=== PATIENT | female | born 1995 ===

== ENCOUNTER 2024-04-16 16:28 | Outpatient (REF) | payer MEDICAID, SELFPAY ==
--- OUTSIDE RECORDS SUMMARY | 2024-04-16 16:48 | XMS_ITS | Clinical Summary ---
Author Organization [facility] Address [address] [place] [address] Phone Care Team Providers Care Premium Note Interest Calculator Clerk Name Role Phone Crystal Eisenberg LACE PINNER Primary Care Provider [phone] Allergies No known active allergies Medications sertraline 25 MG tabletIndicatio ns:Anxiety TAKE 1 TABLET(25 MG) BY MOUTH DAILY 30 tablet 3 Active Additional Information Patient not taking.Reported on 12/06/2020 Active Problems Problem Noted Date Diagnosed Date Right sided sciatica 10/11/2020 Assessment & Plan (10/11/2020 9:31 PM EDT): History and exam consistent with sciatica. Will treat lower back muscle tenderness and tension with a muscle relaxant. Reviewed warnings for use of muscle relaxants. Referring to ortho for further evaluation of back pain and sciatica. Generalized anxiety disorder 06/12/2016 Overview (06/01/2020): Anxiety (300.02) Onset: 06/12/2016 Added by: Stephanie Gil Assessment & Plan (06/11/2020 11:36 PM EDT): Much improved symptoms since starting Zoloft. Will keep at current dose of 25 mg and will follow up if anxiety begins to increase again. Other atopic dermatitis and related conditions 0 12/18/2012 Overview (06/01/2020): Eczema (691.8) Onset: 12/18/2012 Added by: Suzanna Ross Comments Yes Resolved Problems Problem Noted Date Diagnosed Date Resolved Date Gynecomastia 10/11/2020 12/07/2020 Assessment & Plan (10/11/2020 9:33 PM EDT): Patient complains about weight of breasts and stress on her back from this weight. No nipple discharge, headaches or other significant symptoms to suggest an underlying medical condition causing gynecomastia. Will obtain lab work to check for any issues. Patient is interested in breast reduction surgery but only after having kids. Other specified indications for care or intervention related to labor and delivery, antepartum 06/18/2017 06/11/2020 Overview (06/01/2020): Uncomplicated (659.83) Onset: 06/18/2017 Added by: Stephanie Gil Personal history of exposure to potentially hazardous body fluids, presenting hazards to health 05/23/2016 06/11/2020 Overview (06/01/2020): Exposure to STD's by high risk sexual behavior (V15.85) Onset: 05/23/2016 Added by: Alyssa Tavarez Immunizations Name Administration Dates Next Due COVID-19 Pfizer, monovalent, 12+ years 1,05/03/2020 DTaP 08/07/2001, 8,01/22/1997,11/22,1996 HPV, Quadrivalent 03/14/2009,11/09/2008,09/10/19 09 Hep A, ped/adol 12/31/2013,12/19/2011 Hep B, ped/adol 04/12/1997,1996,1996 Hib (PRP-T) 11/14/1997, 7,1996,09/21 IPV 08/07/2001, 8,01/22/1997,11/22,1996 Influenza, injectable, quadr ivalent, preservative free 01/17/2015 Influenza, injectable, trivalent 12/31/2013,11/23 Influenza, injectable, triva lent, preservative free 12/18/2012 MMR 08/07/2001,11/14/1997 Meningococcal Conj (Menactra) MCV4P 12/31/2013,0 09/09/2008 Tdap 05/07/2017,09/09/2008 Varicella 09/09/2008,08/23/1997 Social History Tobacco Use Types Packs/Day Years Used Date Smoking Tobacco: Never Comments:Never Smoker Comments Yes Sex and Gender Information Value Date Recorded Sex Assigned at Not on file Legal Sex Female 6:19 PM EDT Gender Identity Not on file Sexual Orientation Not on file Last Filed Vital Signs Vital Sign Reading Time Taken Comments Blood Pressure 114/66 12/06/2020 2:09 PM EDT Pulse 95 12/06/2020 2:09 PM EDT Temperature 36.8 ??C (98.3 ??F) 12/06/2020 2:09 PM ED T Respiratory Rate - - Oxygen Saturation - - Inhaled Oxygen Concentration - - Weight 86.5 kg (190 lb 12.8 oz) 12/06/2020 2:09 PM EDT Height 168.2 cm (5' 6.22 ) 12/06/2020 2:09 PM ED T Body Mass Index 30.59 12/06/2020 2:09 PM EDT Plan of Treatment Health Maintenance Due Date Last Done Comments Hepatitis B Vaccines (3 of 3 - 3-dose series) 06/07/1997 04/12/1997, 1996, 1996 Influenza Vaccines (#1) 2023 01/18/20 15, 12/31/2013, 12/18/2012, Additional history exists COVID-19 Vaccine (3 - season) 2023 05/29/2020, 05/03/2020 DTaP,Tdap,and Td Vaccines (8 - Td or Tdap) 05/07/2027 05/07/2017, 09/09/2008, 08/07/2001, Additional history exists HIB Vaccines Completed 11/14/1997, 03/1996, 1996, Additional history exists IPV Vaccines Completed 08/07/2001, 03/1997, 01/22/1997, Additional history exists MMR Vaccines Completed 08/07/2001, 11/14/1997 Varicella Vaccines Completed 09/09/2008, 08/23/1997 HPV Vaccines Completed 03/14/2009, 10/22, 09/09/2008 Hepatitis A Vaccines Completed 12/31/2013, 12/19/19 12 Meningococcal Vaccine Completed 12/31/2013, 009 Men B Vaccine Aged Out No longer elig ible based on patient's age to complete this topic Pneumococcal Vaccine Aged Out No long er eligible based on patient's age to complete this topic Procedures * Due to [facility] law, this organization might not be sharing sensitive test results. Procedure Name Priority Date/Time Associated Diagnosis Comments CHLAMYDIA GC AMP PROBE Routine 06/07/2020 9:48 AM EDT Well adult exam from Last 3 Months or Most Recently Relevant to Health Maintenance Results * Due to [facility] law, this organization might not be sharing sensitive test results. * CHLAMYDIA GC AMP PROBE (06/07/2020 9:48 AM EDT) Chlamydia Trachomatis, Amplified NEGATIVE (NEG) [facility] Comment: No Chlamydia Trachomatis RNA detected in this patient's sample ? (REFERENCE RANGE/NORMAL VALUE: NOT DETECTED) ? Note: This test uses balance truer- mediated amplification method to detect rRNA from C. Trachomatis N.GONORRHOEAE AMP PROBE NEGATIVE (NEG) [facility] Comment: No Neisseria Gonorrhoeae RNA detected in this patient's sample ? (REFERENCE RANGE/NORMAL VALUE: NOT DETECTED) ? NOTE: This test uses balance truer-mediated amplification method to detect rRNA from N.Gonorrhoeae. A negative result does not preclude infection. In the case of a negative urine result, testing of an endocervical(female) or urethral (male) specimen is recommended if there is high clinical suspicion of infection. Due to very high sensitivity of Nucleic Acid Amplification Test, false positive results may occur. Therefore, specimen handling is extremely important. In patients in whom the disease is unlikely, additional sample for testing should be considered after an initial positive result. The performance characteristics of this test have not been evaluated in children. The Aptima Combo2 assay is not intended for the evaluation of suspected sexual abuse or for other medico-legal indications. The ordering provider should assess if the patient had consensual sex without risk of sexual abuse. Consult the [facility] if needed. Contact phone number . Therapeutic failure or success cannot be determined with the Aptima Combo2 assay since nucleic acid may persist following appropriate antimicrobial therapy. The Centers for Disease Control and Prevention (CDC) recommends confirmatory retesting using culture or a different nucleic acid amplification test when positive results occur, if indicated. CHLAM/GC AMP PROBE SPEC TYPE CERVIX [facility] Comment: Testing performed or reported by [facility], a Service of [facility], [facility] [place] [address] Rich Hadley MD, Plodder Operator Swab (Vagina) 06/07/2020 9:4 8 AM EDT 06/07/2020 6:12 PM EDT us Stephanie Gil DO LAB MICROBIOLOGY - GENERAL ORDE YOANNA Final Result [facility] from Last 3 Months or Most Recently Relevant to Health Maintenance Insurance [facility] [place] [id number] Care Teams Premium Note Interest Calculator Clerk Relationship Specialty Start Date End Date Crystal Eisenberg NP [address] [place] [address] PCP - General Pediatrics 07/10/20
--- OUTSIDE RECORDS SUMMARY | 2024-04-16 16:48 | XMS_ITS | Clinical Summary ---
Author Organization [employer] Address [address] [place] [address] Care Team Providers Care Preschool Assistant Principal Name Role Phone Nya Brandt MD Primary Care Provider [phone] Allergies No known active allergies Medications * This document contains information received from the source organization and may not represent a complete record from that organization. oseltamivir (Tamiflu) 75 MG capsule Take 1 capsule (75 mg) by mouth 2 times daily for 5 days. 10 capsule 04/16/2024 5 Active Active Problems Problem Noted Date Diagnosed Date Behavior concern in adult 12/29/2023 Assessment & Plan (12/29/2023 9:44 AM EDT): Patient will want to be assess for adult ADHD, contacted and requested to help with location where she can be best served. Blurry vision, bilateral 12/26/2023 Right sided sciatica 10/11/2020 Overview (12/26/2023): Last Assessment & Plan: History and exam consistent with sciatica. Will treat lower back muscle tenderness and tension with a muscle relaxant. Reviewed warnings for use of muscle relaxants. Referring to ortho for further evaluation of back pain and sciatica. Generalized anxiety disorder 06/12/2016 Overview (12/26/2023): Anxiety (300.02) Onset: 06/12/2016 Added by: Stephanie Gil Last Assessment & Plan: Much improved symptoms since starting Zoloft. Will keep at current dose of 25 mg and will follow up if anxiety begins to increase again. Encounters Date Type Department Care Team Description 04/16/2024 3:30 PM EST Office Visit [facility] CHC MED & PEDS [address] [place] [address] Lorena Higgins FNP Cough in adult 04/16/2024 Travel 04/16/2024 Telephone [facility] MEDICINE [address] [place] [address] Gisel Zheng, RN Nurse Triage from Last 3 Months Immunizations Name Administration Dates Next Due DTaP 08/07/2001, 8,01/22/1997,11/22,1996 HPV, Quadrivalent 03/14/2009,11/09/2008,09/10/19 09 Hep A, ped/adol, 2 dose 12/31/2013,12/19/2011 Hep B, Adolescent or Pediatric 04/12/1997,1996,1996 Hib (PRP-T) 11/14/1997, 7,1996,09/21 IPV 08/07/2001, 8,01/22/1997,11/22,1996 Influenza Injectable Quadriv alant Preservative Free IIV4 MDCK 03/23/2021 Influenza injectable quadriv alent preservative free 01/17/2015 Influenza, IIV3, injectable 12/31/2013, 2 Influenza, seasonal, injecta ble, preservative free 12/18/2012 MMR 08/07/2001,11/14/1997 Meningococcal MCV4P [id number] 12/31/2013,09/10/19 09 Tdap 04/30/2021,05/07/2017,09/09/2008 Varicella 09/09/2008,08/23/1997 Family History Medical History Relation Name Comments ADD / ADHD Brother ADD / ADHD Daughter Anxiety disorder Father Asthma Father Hyperlipidemia Father Hypertension Father Sleep apnea Father Cholelithiasis Mother Depression Mother Relation Name Status Comments Brother Daughter Father Mother Social History Tobacco Use Types Packs/Day Years Used Date Smoking Tobacco: Never Passive Smoke Exposure: Never Smokeless Tobacco: Never Tobacco Cessation:Counseling Given: Not Answered Alcohol Use Standard Drinks/Week Comments Never 0 (1 standard drink = 0.6 oz pur e alcohol) Depression Answer Date Recorded Patient Health Questionnaire-9 Score 11 12/26/2023 Patient Health Questionnaire-9 Score 11 12/26/2023 Last PHQ-9: Questionnaire Data Not on file 1 Housing Stability Answer Date Recorded What is your housing situation today? I have livier hendrix 12/18/[address] you li ve. Do you have problems with any of the following? None of the above 12/18/2023 Food Insecurity Answer Date Recorded Within the past 12 months, y ou worried that your food would run out before you got money to buy more: Never True 12/18/2023 Within the past 12 months,th e food you bought just didn't last and you didn't have enough money to get more: Never True Transportation Answer Date Recorded In the past 12 months, has l ack of transportation kept you from medical appts, meetings, work or from getting things needed for daily living? No 12/18/2023 Utilities Answer Date Recorded In the past 12 months, has t he electric, gas, oil or water company threatened to shut off services in your home? No 12/18/2023 Depression Answer Date Recorded Patient Health Questionnaire-2 Score 1 12/26/2023 Internet Access Answer Date Recorded Internet Access Q1 Yes 12/18/2023 Internet Access Q2 Not on file 12/18/2023 Comments Unknown Sex and Gender Information Value Date Recorded Sex Assigned at Female 06/25/2023 9:46 AM EDT Legal Sex Female 8:21 AM EDT Gender Identity Female 06/25/2023 9:46 AM EDT Sexual Orientation Straight 06/25/2023 9: 46 AM EDT Last Filed Vital Signs Vital Sign Reading Time Taken Comments Blood Pressure 115/67 04/16/2024 3:57 PM EST Pulse 110 04/16/2024 3:57 PM EST Temperature 38.1 ??C (100.5 ??F) 04/16/2024 3:[address] Respiratory Rate 16 04/16/2024 3:57 PM EST Oxygen Saturation 98% 04/16/2024 3:57 PM EST Inhaled Oxygen Concentration - - Weight 79.9 kg (176 lb 4 oz) 04/16/2024 3:57 PM EST Height 162.6 cm (5' 4 ) 04/16/2024 3:57 PM EST Body Mass Index 30.25 04/16/2024 3:57 PM EST Plan of Treatment Upcoming Encounters Date Type Department Care Team ([facility] st Contact Info) Description 04/28/2024 3:30 PM EST Office Visit [facility] OPTOMETRY [address] [place] [address] Jemma Zuniga, OD [address] [place] [address] Health Maintenance Due Date Last Done Comments HIV Screening 1996 Hepatitis B Vaccines (3 of 3 - 3-dose series) 06/07/1997 04/12/1997, 1996, 1996 Alcohol/Substance Use Screening 2008 Family Planning (PISQ) 08/05/2011 Hepatitis C Screening 2014 Pap Smear 2017 COVID-19 Vaccine ( season) 2023 03/23/2021, 05/29/2020, 05/03/2020 Influenza Vaccine (#1) 2023 , 01/17/2015, 12/31/2013, Additional history exists Depression Monitoring (PHQ-9) 06/25/2024 12/26/2023, 12/26/2023 SDOH Screening 12/17/2024 12/18/2023 Depression Screening 12/25/2024 12/26/2023, 12/26/19 Tobacco Screening 04/16/2025 04/16/2024 DTaP/Tdap/Td Vaccines (9 - Td or Tdap) 04/30/2031 04/30/2021, 05/07/2017, 09/09/2008, Additional history exists Zoster Vaccines (1 of 2) 2046 RSV Patients and Patients Aged 60 years or older (1 - 1-dose 75+ series) 08/05/2071 HIB Vaccines Completed 11/14/1997, 03/1996, 1996, Additional history exists IPV Vaccines Completed 08/07/2001, 03/1997, 01/22/1997, Additional history exists HPV Vaccines Completed 03/14/2009, 10/22, 09/09/2008 Hepatitis A Vaccines Completed 12/31/2013, 12/19/19 12 Meningococcal Vaccine Completed 12/31/2013, 009 Pneumococcal Vaccine: Pediatrics (0 to 5 Years) and At-Risk Patients (6 to 64 Years) Aged Out No longer eligible based on patient's age to complete this topic RSV under 20 months Aged Out No longe r eligible based on patient's age to complete this topic Rotavirus Vaccines Aged Out No longer eligible based on patient's age to complete this topic Procedures Procedure Name Priority Date/Time Associated Diagnosis Comments POCT INFLUENZA B Routine 04/16/2024 4:28 PM EST Cough in adult POCT RAPID STREP A Routine 04/16/2024 4: 26 PM EST Cough in adult POCT RAPID COVID ANTIGEN Routine 04/16/2024 4:25 PM EST Cough in adult POCT INFLUENZA A Routine 04/16/2024 4:21 PM EST Cough in adult from Last 3 Months Results * POCT Rapid Influenza B OSOM (04/16/2024 4:28 PM EST) [facility] Rapid Influenza B Ag Negative Negative, Indeterminate Comment:internal control pas sed QC Media Lot # [id number] Lot# Expiration Date [id number] Swab 04/16/2024 4:28 PM EST us Lorena Higgins INSTRUMENT TECHNICIAN APPRENTICE POINT OF CARE TEST ENTER/EDIT ORDERABLES Final Result * POCT Rapid Strep A OSOM (04/16/2024 4:26 PM EST) [facility] Rapid Strep A Screen Negative Negative, None Detected Comment:internal control pas sed QC Media Lot # [id number] Lot# Expiration Date [id number] Swab 04/16/2024 4:26 PM EST us Lorena Phalen [facility] POINT OF CARE TEST ENTER/EDIT ORDERABLES Final Result * POCT Rapid Covid-19 BinaxNOW (04/16/2024 4:25 PM EST) Rapid COVID Ag Negative QC Media Lot # [id number] Lot# Expiration Date [id number] Swab 04/16/2024 4:25 PM EST Lorena Higgins [facility] POINT OF CARE TEST ENTER/EDIT ORDERABLES Final Result * (ABNORMAL) POCT Rapid Influenza A OSOM (04/16/2024 4:21 PM EST) [facility] Rapid Influenza A Ag Positive( A) Negative, Indeterminate Comment:internal control pas sed QC Media Lot # [id number] Lot# Expiration Date [id number] Swab Nasopharyngeal structure / Unknown 04/16/2024 4:21 PM EST Lorena Higgins [facility] POINT OF CARE TEST ENTER/EDIT ORDERABLES Edited Result - Final from Last 3 Months Insurance [facility] C3 Care Teams Preschool Assistant Principal Relationship Specialty Start Date End Date Nya Brandt MD [address] [place] [address] PCP - General Family Medicine 12/26/23
--- OUTSIDE RECORDS SUMMARY | 2024-04-16 16:48 | XMS_ITS | Encounter Summary ---
Author Organization [employer] Address [address] [place] [address] Care Team Providers Care Cnc Router Operator Name Role Phone Nya Brandt MD Primary Care Provider Encounter Details Date Type Department Care Team (Latest Contact Info) Description 04/16/2024 Travel Social History Tobacco Use Types Packs/Day Years Used Date Smoking Tobacco: Never Passive Smoke Exposure: Never Smokeless Tobacco: Never Alcohol Use Standard Drinks/Week Comments Never 0 [...] Orientation Straight 06/25/2023 9: 46 AM EDT documented as of this encounter Plan of Treatment Upcoming Encounters Date Type Department Care Team (Late st Contact Info) Description 04/28/2024 3:30 PM EST Office Visit [facility] OPTOMETRY [address] [place] [address] Jemma Zuniga, OD [address] [place] [address] documented as of this encounter Visit Diagnoses Not on filedocumented in this encounter Additional Health Concerns Assessment Noted Time PHQ-9 Depression Total Score: 11 024 4:35 PM EDT documented as of this encounter Care Teams Cnc Router Operator Relationship Specialty Start Date End Date Nya Brandt MD [address] [place] [address] PCP - General Family Medicine 12/26/23 documented as of this encounter
--- OUTSIDE RECORDS SUMMARY | 2024-04-16 16:48 | XMS_ITS | Encounter Summary ---
Author Organization [facility] Address [address] [place] [id number] Phone Care Team Providers Care Drill Bit Sharpener Name Role Phone Crystal Eisenberg GEOPHYSICAL ENGINEER Primary Care Provider [phone] Encounter Details Date Type Department Care Team (Late st Contact Info) Description 09/10/2010 Conversion Encounter [facility] [address] [place] [address] Social History Tobacco Use Types Packs/Day Years Used Date Smoking Tobacco: Never Assessed Comments Unknown Sex and Gender Information Value Date Recorded Sex Assigned at Not on file Legal Sex Female 6:19 PM EDT Gender Identity Not on file Sexual Orientation Not on file documented as of this encounter Plan of Treatment Not on file documented as of this encounter Visit Diagnoses Not on filedocumented in this encounter Care Teams Drill Bit Sharpener Relationship Specialty Start Date End Date Crystal Eisenberg NP [address] [place] [address] PCP - General Pediatrics 07/10/20 documented as of this encounter
--- OUTSIDE RECORDS SUMMARY | 2024-04-16 16:48 | XMS_ITS | Encounter Summary ---
Author Organization [employer] Address [address] [place] [address] Care Team Providers Care Mobile Home Servicer Name Role Phone Nya Brandt MD Primary Care Provider [phone] Encounter Details Date Type Department Care Team ([facility] st Contact Info) Description 04/16/2024 3:30 PM EST Office Visit [facility] CHC MED & PEDS [address] [place], [place] [phone] Lorena Higgins, HAYLEE [address] [place] [address] Cough in adult Social History Tobacco Use Types Packs/Day Years [...] AM EDT documented as of this encounter Last Filed Vital Signs Vital Sign Reading [...] Mass Index 30.25 04/16/2024 3:57 PM EST documented in this encounter Plan of Treatment Upcoming Encounters Date Type Department Care Team (Late st Contact Info) Description 04/28/2024 3:30 PM EST Office Visit [facility] OPTOMETRY [address] [place] [address] Jemma Zuniga, OD [address] [place] [address] Scheduled Orders Name Type Priority Associated Diagnoses Orde r Schedule Culture, Throat Microbiology Routine Cough in adult Ordered: 04/16/2024 Respiratory Viral Panel PCR Lab Routine Cough in adult Expected: 04/16/2024 (Approximate), Expires: 04/16/2025 documented as of this encounter Procedures Procedure Name Priority Date/Time Associated Diagnosis Comments POCT INFLUENZA B Routine 04/16/2024 4:28 PM EST Cough in adult POCT RAPID STREP A Routine 04/16/2024 4: 26 PM EST Cough in adult POCT RAPID COVID ANTIGEN Routine 04/16/2024 4:25 PM EST Cough in adult POCT INFLUENZA A Routine 04/16/2024 4:21 PM EST Cough in adult documented in this encounter Results * POCT Rapid Influenza B OSOM (04/16/2024 4:28 PM EST) [facility] Rapid Influenza B Ag Negative Negative, Indeterminate Comment:internal control pas sed QC Media Lot # [id number] Lot# Expiration Date ,025 Swab 04/16/2024 4:28 PM EST Lorena Phalen [facility] POINT OF CARE TEST ENTER/EDIT ORDERABLES Final Result * POCT Rapid Strep A OSOM (04/16/2024 4:26 PM EST) [facility] Rapid Strep A Screen Negative Negative, None Detected Comment:internal control pas sed QC Media Lot # [id number] Lot# Expiration Date [id number] Swab 04/16/2024 4:26 PM EST us Carrillo Phaljustin SCALLOPER POINT OF CARE TEST ENTER/EDIT ORDERABLES Final Result * POCT Rapid Covid-19 BinaxNOW (04/16/2024 4:25 PM EST) [facility] Rapid COVID Ag Negative QC Media Lot # [id number] Lot# Expiration Date [id number] Swab 04/16/2024 4:25 PM EST us Lorena Phalen SC[facility]OPER POINT OF CARE TEST ENTER/EDIT ORDERABLES Final Result * (ABNORMAL) POCT Rapid Influenza A OSOM (04/16/2024 4:21 PM EST) Rapid Influenza A Ag Positive( A) Negative, Indeterminate Comment:internal control pas sed QC Media Lot # [id number] Lot# Expiration Date ,284 Swab Nasopharyngeal structure / Unknown 04/16/2024 4:21 PM EST Lorena Higgins SCALLOPER POINT OF CARE TEST ENTER/EDIT ORDERABLES Edited Result - Final documented in this encounter Visit Diagnoses Diagnosis Cough in adult documented in this encounter Additional Health Concerns Assessment Noted Time PHQ-9 Depression Total Score: 11 024 4:35 PM EDT documented as of this encounter Care Teams Mobile Home Servicer Relationship Specialty Start Date End Date Nya Brandt MD [address] [place] [address] PCP - General Family Medicine 12/26/23 documented as of this encounter
--- OUTSIDE RECORDS SUMMARY | 2024-04-16 16:48 | XMS_ITS | Clinical Summary ---
Author Organization [facility] Address [address] [place] [address] Care Team Providers Care Fuels Engineer Name Role Phone Damian Gill MD Primary Care Provider [phone] Surgical History Surgery Date Site/Laterality Comments WISDOM TOOTH EXTRACTION PROCEDURE: HISTORICAL WISDOM TEETH EXTRACTION Medical History Medical History Date Comments Chlamydia 04/2016 DX:Chlamydia Anxiety and depression DX:Anxiet y and depression Family History Medical History Relation Name Comments ADD / ADHD Brother he's all whack y-ed out Depression Brother Asthma Father Depression Father Hypertension Father No Known Problems Maternal Grandfather Obesity Maternal Grandmother Depression Mother Other: carpal tunnel Mother Other: open heart sx Paternal Grandfather joe wheelchair until he was 10 yo. Sleep apnea Paternal Grandfather Stroke Paternal Grandfather at age 23yo. Other: Other Paternal Grandmother 5x open heart surgery, hunchback, knee sx Relation Name Status Comments Brother Alive Father Alive Maternal Grandfather Alive Maternal Grandmother Alive Mother Alive Paternal Grandfather Alive Paternal Grandmother Social History Tobacco Use Types Packs/Day Years Used Date Smoking Tobacco: Never Smokeless Tobacco: Never Alcohol Use Standard Drinks/Week Comments No 0 (1 standard drink = 0.6 oz pur e alcohol) Sex and Gender Information Value Date Recorded Sex Assigned at Not on file Gender Identity Not on file Sexual Orientation Not on file Obstetrics History Plan of Treatment Health Maintenance Due Date Last Done Comments Hepatitis B Vaccines (1 of 3 - 19+ 3-dose series) 08/05/2015 Cervical Cancer Screening: P ap Smear 09/11/2020 09/11/2017 COVID-19 Vaccine ( - 2023-2 5 season) 2023 Influenza Vaccine (#1) 2023 01/08/2017 DTaP,Tdap,and Td Vaccines (2 - Td or Tdap) 05/07/2027 05/07/2017 HIB Vaccines Aged Out No longer eligi ble based on patient's age to complete this topic HPV Vaccines Aged Out No longer eligi ble based on patient's age to complete this topic Hepatitis A Vaccines Aged Out No long er eligible based on patient's age to complete this topic IPV Vaccines Aged Out No longer eligi ble based on patient's age to complete this topic MMR Vaccines Aged Out No longer eligi ble based on patient's age to complete this topic Meningococcal ACWY Vaccine Aged Out N o longer eligible based on patient's age to complete this topic Pneumococcal Vaccine: Pediat rics (0 to 5 Years) and At-Risk Patients (6 to 64 Years) Aged Out No longer eligi ble based on patient's age to complete this topic RSV Immunization Patients Un chad 20 months Aged Out No longer eligible b ased on patient's age to complete this topic Varicella Vaccines Aged Out No longer eligible based on patient's age to complete this topic Procedures Procedure Name Priority Date/Time Associated Diagnosis Comments PAP SMEAR Routine 09/11/2017 from Last 3 Months or Most Recently Relevant to Health Maintenance Results * Pap smear (09/11/2017) 09/11/2017 Narrative HISTORICAL TESTING LAB RESULTING AGENCY - 09/15/2017 8:07 AM EDT [id number] THINPREP PAP, IMAGED: NEGATIVE FOR SQUAMOUS INTRAEPITHELIAL LESION AND MALIGNANCY ??. ABUNDANT RED BLOOD CELLS ARE PRESENT. PEACE JAVED(ASCP) (CASE ELECTRONICALLY SIGNED 09 14 2017) ADEQUACY: SATISFACTORY. ENDOCERVICAL/TRANSFORMATION ZONE COMPONENT PRESENT. SOURCE: THINPREP PAP HPV IF ASCUS, CERVICAL, IMAGED: CLINICAL INFORMATION: HPV IF DIAGNOSIS OF ASCUS. Z12.4, POST Chidi Henry CNM LAB CYTOLOG Y ORDERABLES HISTORICAL TESTING LAB RESULTING AGENCY from Last 3 Months or Most Recently Relevant to Health Maintenance Care Teams Fuels Engineer Relationship Specialty Start Date End Date Damian Gill MD [address] [place] [address] [place] [address] PCP - General Pediatrics 12/03/16
--- OUTSIDE RECORDS SUMMARY | 2024-04-16 16:48 | XMS_ITS | Encounter Summary ---
Author Organization [employer] Address [address] [place] [address] Care Team Providers Care Medical Insurance Verifier Name Role Phone Nya Brandt MD Primary Care Provider [phone] Reason for Visit * Reason Onset Date Comments Nurse Triage 04/16/2024 Encounter Details Date Type Department Care Team (Late st Contact Info) Description 04/16/2024 Telephone [facility] [address], [place] [phone] Gisel Zheng, RN [address], [place] [phone] Nurse Triage Social History Tobacco Use Types Packs/Day Years [...] AM EDT documented as of this encounter Miscellaneous Notes * Telephone Encounter - Gisel Zheng RN - 04/16/2024 11:05 AM EST Pt wrote on MyChart requesting a sick appt [facility] d/t thinking she might have strep throat. Telephonecall placed to pt who reports has never had strep throat before but, it feels like I am swallowingglass . Denied fever, nasal grainage, or any other Sx. Offered WIC or appt in [facility] this afternoon. Pt agreed to see Phalen today at 3:30pm. Booked. documented in this encounter Plan of Treatment Upcoming Encounters Date Type Department Care Team (Late st Contact Info) Description 04/28/2024 3:30 PM EST Office Visit [facility] [address] [place] [address] KamilahkaJemma, OD [address] [place] [address] documented as of this encounter Visit Diagnoses Not on filedocumented in this encounter Additional Health Concerns Assessment Noted Time PHQ-9 Depression Total Score: 11 024 4:35 PM EDT documented as of this encounter Care Teams Medical Insurance Verifier Relationship Specialty Start Date End Date Nya Brandt MD [address] [place] [address] PCP - General Family Medicine 12/26/23 documented as of this encounter
[2024-04-17 12:58] LABS: Adenovirus PCR Not Detected (Not Detect.); Bordetella parapertussis PCR Not Detected (Not Detect.); Bordetella pertussis PCR Not Detected (Not Detect.); Chlamydia pneumoniae PCR Not Detected (Not Detect.); Coronavirus 229E PCR Not Detected (Not Detect.); Coronavirus HKU1 PCR Not Detected (Not Detect.); Coronavirus NL63 PCR Detected (Not Detect.); Coronavirus OC43 PCR Not Detected (Not Detect.); Human metapneumovirus PCR Not Detected (Not Detect.); Influenza B PCR Not Detected (Not Detect.); Mycoplasma pneumoniae PCR Not Detected (Not Detect.); Parainfluenza 1 PCR Not Detected (Not Detect.); Parainfluenza 2 PCR Not Detected (Not Detect.); Parainfluenza 3 PCR Not Detected (Not Detect.); Parainfluenza 4 PCR Not Detected (Not Detect.); RSV PCR Not Detected (Not Detect.); Rhino/Enterovirus PCR Not Detected (Not Detect.)
[2024-04-17 13:18] LABS: Influenza A PCR Detected (Not Detect.); SARS-CoV-2 PCR Not Detected (Not Detect.)
== END 2024-04-16 16:29 | disposition home or self-care (01) ==
LOC: HO.CHCLNP 16:28
PROVIDERS: Visit Provider Registered Nurse
DX: R05.9 Cough, unspecified (principal); Z11.52 Encounter for screening for COVID-19; Z13.83 Encounter for screening for respiratory disorder NEC
CPT/HCPCS: 87070; 87633